=== PATIENT | male | born 1995 | race Caucasian/White ===

== ENCOUNTER 2017-09-10 02:47 | Observation (INO) | payer MEDICAID ==
[~2017-09-10] VITALS: Ht 180.3 cm; Wt 108.6 kg
--- NOTE | 2017-09-10 02:47 | NUR ---
PT YAYO SPENCER WITH [employer], PREBOOK. TAKEN TO BED 12
[2017-09-10 02:51] VITALS: BP 148/96
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
--- NOTE | 2017-09-10 02:56 | NUR ---
Patient being evaluated by physician at bedside.
[2017-09-10] MEDS ORDERED: MORPHINE SULFATE 4 MG/ML SYR IVP ONE (03:05)
[2017-09-10] MEDS ORDERED: ONDANSETRON 4 MG/2 ML VIAL IVP ONE (03:05)
[2017-09-10] MEDS ORDERED: NACL 0.9% 1,000 ML IV ONE (03:05)
--- NOTE | 2017-09-10 03:08 | NUR ---
PT TAKEN TO CT
[2017-09-10] MEDS ORDERED: MORPHINE SULFATE 4 MG/ML SYR ONE (03:13)
[2017-09-10] MEDS ORDERED: ONDANSETRON 4 MG/2 ML VIAL ONE ×2 (03:14→11:49)
[2017-09-10 04:06] LABS: HEMATOCRIT 47.2 % (36-52); HEMOGLOBIN 15.8 g/dL (12.0-18.0); MEAN CORPUSCULAR HEMOGLOBIN 27 pg (27-31); MEAN CORPUSCULAR HGB CONC 33 g/dL (33-37); MEAN CORPUSCULAR VOLUME 82 fL (80-94); PLATELET COUNT (AUTO) 289 K/uL (140-450); RED BLOOD CELL COUNT(AUTO) 5.76 MIL/uL (4.20-6.10); RED CELL DISTRIBUTION WIDTH 12.7 % (11.6-13.7)
[2017-09-10 04:25] LABS: ALBUMIN 4.1 g/dL (3.4-5.0); ANION GAP 16.5 (8-16); CARBON DIOXIDE 27.4 mmol/L (21-32); CREATININE 1.1 mg/dL (0.7-1.3); POTASSIUM 3.9 mmol/L (3.5-5.1); TOTAL BILIRUBIN 0.5 mg/dL (0.0-1.0)
[2017-09-10 04:31] LABS: APPEARANCE,URINE CLEAR (CLEAR); BILIRUBIN,URINE NEGATIVE (NEGATIVE); BLOOD, URINE NEGATIVE (NEGATIVE); COLOR,URINE YELLOW (YELLOW); LEUKOCYTE ESTERASE ,URINE NEGATIVE (NEGATIVE); NITRITE, URINE NEGATIVE (NEGATIVE); UGLUCOSE NEGATIVE (NEGATIVE)
[2017-09-10 04:37] LABS: WHITE BLOOD COUNT (AUTO) 18.4 K/uL (4.5-11.0)
[2017-09-10 04:39] LABS: LYMPHOCYTES % (MANUAL) 15 % (20-46); MONOCYTES % (MANUAL) 2 % (5-12)
[2017-09-10 04:41] LABS: BARBITURATE, URINE NEG. ng/ml (NEG <=200); BENZODIAZEPINE, URINE NEG. ng/mL (NEG <=200); CANNABINOID, URINE POS. ng/mL (NEG <=50); COCAINE, URINE NEG. ng/mL (NEG <=300); OPIATE, URINE NEG. ng/mL (NEG <=2000); PHENCYCLIDINE SCREEN,URINE NEG. ng/mL (NEG <=25)
[2017-09-10 04:44] LABS: RBC,URINE 0-5 (RARE) /HPF (0-5); WBC,URINE 0-5 (RARE) /HPF (0-5)
--- NOTE | 2017-09-10 05:41 | NUR ---
OK PER DR SAMIR ESPARZA TO REMOVE C-COLLAR
--- NOTE | 2017-09-10 06:30 | NUR ---
PT ARRIVE VIA GURNEY APPEARS ASLEEP BUT AROUSABLE. PD AT BEDSIDE AND PT IS HANDCUFFED. VITAL SIGNS CHECKED. T=96.3 HR 69 100% ROOMAIR BP 129/78 R 16.
--- NOTE | 2017-09-10 06:39 | NUR ---
Patient will be admitted to care of DR KAPADIA. Admited to TELE 112A. Will go to room 112A. Belongings list completed. Report to DIOR NARAYANAN .
--- NOTE | 2017-09-10 06:50 | NUR ---
MRSA SWAB COLLECTED BY CHARGE NURSE.
[2017-09-10] MEDS ORDERED: HYDROcodone/APAP 7.5/325 MG 1 TAB PO PRN ×2 (07:30→08:40)
--- NOTE | 2017-09-10 07:40 | NUR ---
RECEIVED REPORT FROM NIGHT NURSE AT PT BEDSIDE. PT IS FOUND ASLEEP, MINIMAL AROUSAL WITH MODERATE STIMULI. PD AT BEDSIDE FOR PREBOOK. PATIENT CALL LIGHT WITHIN REACH. UNABLE TO OBTAIN H&P. WILL CONTINUE TO MONITOR.
[2017-09-10 08:12] VITALS: BP 124/76
[2017-09-10] MEDS ORDERED: MORPHINE SULFATE 2 MG/ML SYR IVP PRN (08:40)
[2017-09-10] MEDS ORDERED: ONDANSETRON 4 MG/2 ML VIAL IM/IVP PRN (08:40)
[2017-09-10] MEDS ORDERED: DOCUSATE SODIUM 100 MG GELCAP PO PRN (08:40)
[2017-09-10] MEDS ORDERED: ACETAMINOPHEN 325 MG TAB PO PRN (08:40)
[2017-09-10] MEDS ORDERED: LORazepam 0.5 MG TAB PO PRN (08:45)
--- NOTE | 2017-09-10 08:52 | NUR ---
PATIENT HAS BEEN SCREENED AND CATEGORIZED LOW NUTRITION RISK. PATIENT WILL BE SEEN WITHIN 7 DAYS OF ADMISSION. 09/16/[address]
[2017-09-10 10:04] LABS: PROTHROMBIN TIME 10.3 secs (10.8-13.4)
[2017-09-10] MEDS: NACL 0.9% 1,000 ML IV SCH ×2 (10:06→20:41)
--- NOTE | 2017-09-10 10:26 | NUR ---
PATIENT IS AWAKE AND ALERT AT THIS TIME. DENIES PAIN. NO S/S OF RESPIRATORY DISTRESS. FOLLOWS COMMANDS. ANSWERS QUESTIONS APPROPRIATELY. MADE AWARE OF HOSPITAL ENVIRONMENT. CALL LIGHT WITHIN REACH. IV SITE PATENT AND INTACT.
[2017-09-10 10:43] LABS: CHOL/HDL RATIO 4.8 (1-4.5); FREE T4 (FREE THYROXINE) 1.14 ng/dL (0.76-1.46); MAGNESIUM 2.5 mg/dL (1.8-2.4); PHOSPHORUS 3.3 mg/dL (2.5-4.9); THYROID STIMULATING HORMONE 4.1 uIU/mL (0.34-3.74)
[2017-09-10] MEDS ORDERED: LEVOFLOXACIN 750 MG/D5W PREMIX 150 ML IV SCH (11:35)
[2017-09-10] MEDS ORDERED: NICOTINE TRANSD SYS 14 MG/24 HR PATCH TD SCH (11:43)
[2017-09-10] MEDS ORDERED: LACTOBACILLUS RHAMNOSUS GG 1 EACH CAP PO SCH (11:45)
[2017-09-10] MEDS ORDERED: HYDROcodone/APAP 5/325 MG 1 TAB TAB ONE (11:48)
[2017-09-10] MEDS ORDERED: LACTOBACILLUS RHAMNOSUS GG 1 EACH CAP ONE (11:54)
[2017-09-10] MEDS ORDERED: LEVOFLOXACIN 750 MG/D5W PREMIX 150 ML IV ONE (11:55)
[2017-09-10 12:00] VITALS: BP 130/72
[2017-09-10] MEDS ORDERED: HYDROcodone/APAP 7.5/325 MG 1 TAB ONE (12:02)
[2017-09-10] MEDS ORDERED: NICOTINE TRANSD SYS 14 MG/24 HR PATCH TD ONE (12:08)
--- NOTE | 2017-09-10 12:16 | NUR ---
PATIENT'S UNCLE AT BEDSIDE. PATIENT AND FAMILY SPOKE WITH DR. JIMENES AT BEDSIDE. NEW ORDERS RECEIVED, MEDICATED FOR PAIN AND NAUSEA. STARTED ON IVABX. NO S/S OF ACUTE DISTRESS, RESTING IN BED. ANSWERS QUESTIONS APPROPRIATELY. PATIENT IS NO LONGER BEING HELD FOR BOOKING.
[2017-09-10] MEDS ORDERED: metroNIDAZOLE 500 MG/NS PREMIX 100 ML IV ONE ×2 (13:06→20:35)
[2017-09-10] MEDS: metroNIDAZOLE 500 MG/NS PREMIX 100 ML IV SCH ×2 (13:08→20:41)
[2017-09-10 13:11] LABS: BASOPHILS # (AUTO) 0.2 K/uL (0.00-0.22); BASOPHILS % (AUTO) 2.4 % (0.0-2.0); EOSINOPHILS # (AUTO) 0.1 K/uL (0-0.4); EOSINOPHILS % (AUTO) 0.6 % (0.0-4.0); HEMATOCRIT 41.4 % (36-52); HEMOGLOBIN 13.9 g/dL (12.0-18.0); LYMPHOCYTES # (AUTO) 2.5 K/uL (2.0-11.5); MEAN CORPUSCULAR HEMOGLOBIN 28 pg (27-31); MEAN CORPUSCULAR HGB CONC 34 g/dL (33-37); MEAN CORPUSCULAR VOLUME 82 fL (80-94); MONOCYTES # (AUTO) 0.7 K/uL (0.8-1.0); MONOCYTES % (AUTO) 6.8 % (1.7-9.3); NEUTROPHILS # (AUTO) 6.2 K/uL (1.8-7.7); NEUTROPHILS % (AUTO) 64.2 % (42.2-75.2); PLATELET COUNT (AUTO) 247 K/uL (140-450); RED BLOOD CELL COUNT(AUTO) 5.03 MIL/uL (4.20-6.10); RED CELL DISTRIBUTION WIDTH 13.1 % (11.6-13.7); WHITE BLOOD COUNT (AUTO) 9.8 K/uL (4.5-11.0)
[2017-09-10] MEDS ORDERED: LACTULOSE 20 GM/30 ML UDC PO SCH ×2 (14:39→17:00)
[2017-09-10] MEDS ORDERED: LACTULOSE 20 GM/30 ML UDC ONE ×2 (15:33→17:55)
[2017-09-10 16:00] VITALS: BP 129/66
--- NOTE | 2017-09-10 16:40 | NUR ---
PATIENT HAD US AT BEDSIDE. PATIENT ASLEEP, AWAKENS TO MODERATE STIMULI. NO S/S OF ACUTE DISTRESS. INDEPENDENT IN ADLS.
--- NOTE | 2017-09-10 19:32 | NUR ---
SBAR REPORT GIVEN TO ORACIO SALAZAR AT PT BEDSIDE. NO S/S OF ACUTE DISTRESS NOTED.
--- NOTE | 2017-09-10 19:40 | NUR ---
RECEIVED REPORT FROM DAY SHIFT RN, PATIENT WAS SLEEPING, EASY TO AROUSE, BUT PATIENT REFUSED TO TALK AND REFUSED SKIN ASSESSMENT. NO S/S OF DISTRESS NOTED, RESPIRATION EVEN AND UNLABORED, IV PATENT AND INTACT, INFUSING NS AT 80ML/HR, CALL LIGHT WITHIN REACH, SAFETY MEASURE ENSURED, WILL CONTINUE TO MONITOR.
--- NOTE | 2017-09-10 20:41 | NUR ---
IVF NS 1000ML FINISHED
--- NOTE | 2017-09-10 21:41 | NUR ---
METRONIDAZOLE FINISHED, PATIENT TOLERATED WELL.
--- NOTE | 2017-09-10 22:30 | NUR ---
PATIENT IS SLEEPING, RESPIRATION EVEN AND UNLABORED, NO S/S OF DISTRESS NOTED, CALL LIGHT WITHIN REACH, SAFETY MEASURE ENSURED, WILL CONTINUE TO MONITOR.
[2017-09-10 23:49] VITALS: BP 122/83
--- NOTE | 2017-09-11 00:10 | NUR ---
PATIENT IS SLEEPING, EASY TO AROUSE, VITAL SIGNS STABLE, RESPIRATION EVEN AND UNLABORED, NO S/S OF DISTRESS NOTED, CALL LIGHT WITHIN REACH, SAFETY MEASURE ENSURED, WILL CONTINUE TO MONITOR.
--- NOTE | 2017-09-11 02:13 | NUR ---
NO CHANGE IN CONDITION, PATIENT IS SLEEPING, NO S/S OF DISTRESS NOTED, RESPIRATION EVEN AND UNLABORED, CALL LIGHT WITHIN REACH, SAFETY MEASURE ENSURED, WILL CONTINUE TO MONITOR.
--- NOTE | 2017-09-11 04:44 | NUR ---
PATIENT C/O IV PUMP BEEPING, FIXED THE IV PUMP, PATIENT IS SLEEPING AT THIS TIME, NO S/S OF DISTRESS NOTED, WILL CONTINUE TO MONITOR.
[2017-09-11] MEDS ORDERED: metroNIDAZOLE 500 MG/NS PREMIX 100 ML IV ONE (05:09)
[2017-09-11] MEDS: metroNIDAZOLE 500 MG/NS PREMIX 100 ML IV SCH (05:11)
--- NOTE | 2017-09-11 06:11 | NUR ---
METRONIDAZOLE FINISHED, PATIENT TOLERATED WELL.
[2017-09-11 06:44] LABS: BASOPHILS # (AUTO) 0.4 K/uL (0.00-0.22); BASOPHILS % (AUTO) 4.8 % (0.0-2.0); EOSINOPHILS # (AUTO) 0.1 K/uL (0-0.4); HEMATOCRIT 41.7 % (36-52); LYMPHOCYTES # (AUTO) 2.4 K/uL (2.0-11.5); LYMPHOCYTES % (AUTO) 26.9 % (20.5-51.1); MEAN CORPUSCULAR HEMOGLOBIN 28 pg (27-31); MEAN CORPUSCULAR HGB CONC 34 g/dL (33-37); MEAN CORPUSCULAR VOLUME 82 fL (80-94); MONOCYTES # (AUTO) 0.8 K/uL (0.8-1.0); MONOCYTES % (AUTO) 8.5 % (1.7-9.3); NEUTROPHILS # (AUTO) 5.4 K/uL (1.8-7.7); NEUTROPHILS % (AUTO) 58.8 % (42.2-75.2); PLATELET COUNT (AUTO) 245 K/uL (140-450); RED BLOOD CELL COUNT(AUTO) 5.06 MIL/uL (4.20-6.10); RED CELL DISTRIBUTION WIDTH 12.8 % (11.6-13.7); WHITE BLOOD COUNT (AUTO) 9.1 K/uL (4.5-11.0)
--- NOTE | 2017-09-11 06:47 | NUR ---
PATIENT IS SLEEPING, RESPIRATION EVEN AND UNLABORED, NO S/S OF DISTRESS NOTED, CALL LIGHT WITHIN REACH, SAFETY MEASURE ENSURED, WILL CONTINUE TO MONITOR.
[2017-09-11 06:51] LABS: CARBON DIOXIDE 27.9 mmol/L (21-32); CREATININE 0.8 mg/dL (0.7-1.3); POTASSIUM 3.9 mmol/L (3.5-5.1)
[2017-09-11 07:00] LABS: MAGNESIUM 1.8 mg/dL (1.8-2.4); PHOSPHORUS 3.7 mg/dL (2.5-4.9)
--- NOTE | 2017-09-11 07:15 | NUR ---
ENDORSEMENT RECEIVED FROM PRODUCTION SUPPORT SPECIALIST NURSE. PATIENT IS SLEEPING COMFORTABLY. RESPIRATION EVEN, UNLABOR ON ROOM AIR. SKIN DRY AND WARM. IV PATENT AND INTACT. CALL LIGHT WITHIN REACH. NO DISTRESS NOTED AT THIS TIME. BED AT LOW POSITION
--- NOTE | 2017-09-11 07:26 | NUR ---
ENDORSED PLAN OF CARE TO DAY SHIFT RN, PATIENT IS IN STABLE CONDITION, NO S/S OF DISTRESS NOTED.
[2017-09-11 08:00] VITALS: BP 115/73
[2017-09-11] MEDS ORDERED: LACTOBACILLUS RHAMNOSUS GG 1 EACH CAP PO SCH (09:00)
[2017-09-11] MEDS: LACTULOSE 20 GM/30 ML UDC PO SCH ×2 (09:00→09:29)
[2017-09-11] MEDS ORDERED: NICOTINE TRANSD SYS 14 MG/24 HR PATCH TD SCH (09:00)
[2017-09-11] MEDS ORDERED: LACTULOSE 20 GM/30 ML UDC ONE (09:25)
[2017-09-11] MEDS ORDERED: LACTOBACILLUS RHAMNOSUS GG 1 EACH CAP ONE (09:25)
[2017-09-11] MEDS ORDERED: NICOTINE TRANSD SYS 14 MG/24 HR PATCH TD ONE (09:27)
[2017-09-11] MEDS: NACL 0.9% 1,000 ML IV SCH (09:30)
--- NOTE | 2017-09-11 09:30 | NUR ---
PATIENT AMBULATES AROUND THE HALLWAY, STEADY GAIT. DENIED PAIN AT THIS TIME.
--- NOTE | 2017-09-11 09:30 | NUR ---
IVF NACL 1000ML IS DONE AT 0930.
[2017-09-11] MEDS ORDERED: LACT10CA1 PO (10:25)
[2017-09-11] MEDS ORDERED: LEVO750T2 PO (10:25)
[2017-09-11] MEDS ORDERED: LACT10SO1 PO (10:25)
--- NOTE | 2017-09-11 11:00 | NUR ---
PATIENT IS SLEEPING COMFORTABLY. RESPIRATION EVEN, UNLABOR ON ROOM AIR. NO DISTRESS NOTED AT THIS TIME. IV PATENT AND INTACT. CALL LIGHT WITHIN REACH
--- NOTE | 2017-09-11 13:12 | NUR ---
DISCHARGE INSTRUCTION AND PRESCRIPTION WAS GIVEN. PATIENT VERBALIZED UNDERSTANDING. IV WAS REMOVED, CATHETER INTACT, NO ACTIVE BLEEDING SEEN, PATIENT TOLERATED WELL. ID BAND WAS REMOVED. PATIENT REFUSED FLU SHOT. ALL BELONGINGS WERE TAKEN WITH THE PATIENT. PATIENT AMBULATES SELF TO THE LOBBY, ESCORTED BY STAFF AND FAMILY. PATIENT IS STABLE AT THIS TIME.
--- NOTE | 2017-09-11 13:15 | NUR ---
IVF NORMAL SALINE 1000ML IS DONE AT 1300
[2017-09-14 10:33] LABS: T4 (THYROXINE) 8.3 ug/dL (4.5 - 12.0)
== END 2017-09-11 13:15 | disposition home or self-care (01) ==
LOC: MED 02:47 → MTU 06:17
PROVIDERS: ADMIT Family Medicine Sports Medicine; ATTEND Family Medicine Sports Medicine
DX: M54.5 Low back pain (principal); G92 Toxic encephalopathy; M54.2 Cervicalgia; T40.7X5A Adverse effect of cannabis (derivatives), initial encounter; T43.625A Adverse effect of amphetamines, initial encounter; R80.9 Proteinuria, unspecified; I88.0 Nonspecific mesenteric lymphadenitis; D72.829 Elevated white blood cell count, unspecified; E83.41 Hypermagnesemia; F17.210 Nicotine dependence, cigarettes, uncomplicated; E78.5 Hyperlipidemia, unspecified; E66.9 Obesity, unspecified; Z68.33 Body mass index [BMI] 33.0-33.9, adult
CPT/HCPCS: 36415; 70450; 70486; 71250; 72125; 72128; 72131; 73564; 74176; 76705; 80048; 80053; 80061; 80305; 81001; 82140; 82150; 83036; 83690; 83735; 83880; 84100; 84436; 84439; 84443; 84479; 84484; 85025; 85610; 85730; 86886; 86900; 86901; 87081; 93005; 96361; 96365; 96366; 96367; 96375; 96376; 99285; G0378; G0482; J1956; J2270; J2405; J3490; Q0092; 96374